=== PATIENT | male | born 1950 | race Caucasian/White ===

== ENCOUNTER 2020-09-20 12:35 | Emergency (ER) | payer MEDICARE ==
[~2020-09-20] VITALS: Ht 175.3 cm; Wt 113.6 kg
[~2020-09-20 12:35] MED LIST: LISI-894 PO; RISP3TAB35 PO
[2020-09-20 15:30] VITALS: BP 146/80
== END 2020-09-20 16:10 | disposition home or self-care (01) ==
LOC: EMS 12:41
DX: S82.892D Other fracture of left lower leg, subsequent encounter for closed fracture with routine healing (principal); X58.XXXD Exposure to other specified factors, subsequent encounter
CPT/HCPCS: 99282; 73610-TC; Z7502